=== PATIENT | male | born 1975 | race Caucasian/White ===

== ENCOUNTER 2017-10-14 05:23 | Day surgery (SDC) | payer BC, MEDICARE ==
[2017-10-14 06:00] LABS: ADD MAN DIFF? NO
[2017-10-14 06:05] LABS: WHITE BLOOD COUNT 6.7 10^3/ul (4.8-10.8)
[2017-10-14 06:05] LABS: BASOPHILS % 0.3 % (0.0-2.0); EOSINOPHILS # 0.2 10^3/ul (0.0-0.5); EOSINOPHILS % 3.3 % (0.0-7.0); HEMATOCRIT 32.7 % (42.0-52.0); HEMOGLOBIN 11.4 g/dl (14.0-18.0); LYMPHOCYTES # 1.2 10^3/ul (0.8-2.9); LYMPHOCYTES % 17.3 % (15.0-51.0); MEAN CORPUSCULAR HEMOGLOBIN 29.4 pg (29.0-33.0); MEAN CORPUSCULAR HGB CONC 34.9 g/dl (32.0-37.0); MEAN CORPUSCULAR VOLUME 84.3 fl (82.0-101.0); MEAN PLATELET VOLUME 10.8 fl (7.4-10.4); MONOCYTE # 1.1 10^3/ul (0.3-0.9); MONOCYTES % 16.4 % (0.0-11.0); NEUTROPHIL # 4.2 10^3/ul (1.6-7.5); NEUTROPHILS % 62.4 % (39.0-77.0); PLATELET COUNT 170 10^3/UL (140-415); RED BLOOD COUNT 3.88 10^6/ul (4.70-6.10)
[2017-10-14 06:17] LABS: INR 1.02; PROTIME 13.5 Sec (11.9-14.9); PT RATIO 1.1
[2017-10-14 06:18] LABS: PARTIAL THROMBOPLASTIN TIME 33.1 Sec (25.0-35.0)
[2017-10-14 06:24] LABS: ANION GAP 18 (8-16); CARBON DIOXIDE 36 mmol/L (21-31); CHLORIDE 94 mmol/L (97-110); GLUCOSE 95 mg/dl (70-220)
[2017-10-14 06:40] LABS: BLOOD UREA NITROGEN 39 mg/dl (7-20); CALCIUM 8.2 mg/dl (8.4-10.2); CREATININE 6.11 mg/dl (0.61-1.24); SODIUM 144 mmol/L (135-144)
[2017-10-14] MEDS ORDERED: LIDOCAINE 1% (MDV) 20 ML INJ (10:01)
[2017-10-14] MEDS ORDERED: IODIXANOL LOCM 100 ML BTL (10:01)
[2017-10-14] MEDS ORDERED: MIDAZOLAM 1 MG/ML 2 ML INJ (10:35)
[2017-10-14] MEDS ORDERED: FENTAnyl 50 MCG/ML VIAL (10:36)
== END 2017-10-14 11:50 | disposition home or self-care (01) ==
LOC: SDS 05:23
DX: I12.0 Hypertensive chronic kidney disease with stage 5 chronic kidney disease or end stage renal disease (principal); N18.6 End stage renal disease; E11.8 Type 2 diabetes mellitus with unspecified complications
CPT/HCPCS: 37248; 37249; 80048; 85025; 85610; 85730